=== PATIENT | female | born 1955 ===

== ENCOUNTER 2019-06-15 11:56 | Day surgery (SDC) | payer MEDICARE, BC ==
[~2019-06-15] VITALS: Ht 160 cm; Wt 73.3 kg
[~2019-06-15 11:56] MED LIST: ADULT GLYCERIN1 EACH PR; LINZESS72 MCG PO; LIVALO4 MG PO
[2019-06-15] MEDS ORDERED: THERA-D2000 UNIT PO (12:21)
[2019-06-15] MEDS ORDERED: MELA3 PO (12:21)
[2019-06-15] MEDS ORDERED: Vitamin B-121000 MCG PO (12:21)
--- NOTE | 2019-06-15 14:06 | NUR ---
06/15/19 1406 Annamaria Santiago PROCEDURE CHANGED FROM A UPPER ENDOSCOPY/COLONOSCOPY TO JUST A COLONOSCOPY. PT HAD RECENTLY HAD A BARIUM SWALLOW THAT WAS READ BY MD MELENDEZ.
== END 2019-06-15 13:27 | disposition home or self-care (01) ==
LOC: ORSCSDS 11:56
PROVIDERS: Internal Medicine Gastroenterology
PROC: 0DJD8ZZ Inspection of Lower Intestinal Tract, Via Natural or Artificial Opening Endoscopic (ICD-10-PCS; principal; 2019-06-15 13:15)
DX: Z12.11 Encounter for screening for malignant neoplasm of colon (principal); Z86.010 Personal history of colon polyps; Z80.0 Family history of malignant neoplasm of digestive organs; K59.00 Constipation, unspecified; K57.30 Diverticulosis of large intestine without perforation or abscess without bleeding; R07.9 Chest pain, unspecified; R13.14 Dysphagia, pharyngoesophageal phase; Z79.899 Other long term (current) drug therapy
CPT/HCPCS: J2704; J7120

== ENCOUNTER 2021-06-21 10:05 | Emergency (ER) | payer MEDICARE, BC ==
[~2021-06-21] VITALS: Ht 160 cm; Wt 72.6 kg
[~2021-06-21 10:05] MED LIST changes: +MELA3 PO; +THERA-D2000 UNIT PO; +Vitamin B-121000 MCG PO
== END 2021-06-21 13:06 | disposition home or self-care (01) ==
LOC: ER 10:05
DX: R07.89 Other chest pain (principal); Z88.0 Allergy status to penicillin; Z79.899 Other long term (current) drug therapy; W19.XXXA Unspecified fall, initial encounter
CPT/HCPCS: 71111; 71250; 99284-25

== ENCOUNTER 2025-02-22 13:46 | Emergency (ER) | payer MEDICARE, BC ==
[~2025-02-22] VITALS: Ht 160 cm; Wt 81.2 kg
[2025-02-22 14:08] VITALS: BP 179/92
[2025-02-22 15:41] LABS: BASOPHILS ABSOLUTE AUTO 0.05 K/mm3 (0.00-0.23); BASOPHILS PERCENT AUTO 1 % (0-2); EOSINOPHILS ABSOLUTE AUTO 0.13 K/mm3 (0.00-0.68); EOSINOPHILS PERCENT AUTO 2 % (0-6); Hematocrit 42.3 % (33.0-51.0); Hemoglobin 14.1 g/dL (11.5-16.0); IMMATURE GRAN ABSOLUTE AUTO 0.02 K/mm3 (0.00-0.10); IMMATURE GRAN PERCENT AUTO 0 % (0-1); LYMPHOCYTES ABSOLUTE AUTO 1.74 K/mm3 (0.84-5.20); LYMPHOCYTES PERCENT AUTO 25 % (21-46); MONOCYTES ABSOLUTE AUTO 0.43 K/mm3 (0.16-1.47); MONOCYTES PERCENT AUTO 6 % (4-13); Mean Corpuscular HGB Conc 33.3 g/dL (31.5-36.5); Mean Corpuscular Volume 90 fL (80-100); NEUTROPHILS ABSOLUTE AUTO 4.48 K/mm3 (1.96-9.15); NEUTROPHILS PERCENT AUTO 65 % (41-73); NRBC ABSOLUTE 0.00 K/mm3 (0.00-0.02); NRBC Auto 0.0 /100 WBC (0.0-0.2); Platelet Count 212 K/mm3 (150-400); RDW Coefficient Variation 13.0 % (11.7-14.2); RDW Standard Deviation 42.7 fL (35.1-46.3)
[2025-02-22 16:10] LABS: Alanine Aminotransfer (ALT/SGP 32.0 U/L (12-78); Albumin, Blood 4.2 g/dL (3.4-5.0); Albumin/Globulin Ratio 1.3 (0.8-1.8); Anion Gap 7.0 mmol/L (3-11); Aspartate Aminotrans (AST/SGOT 21.0 U/L (12-37); Bilirubin, Total 0.7 mg/dL (0.1-1.0); Blood Urea Nitrogen 17.0 mg/dL (8-24); CO2, Blood 28.0 mmol/L (21-32); Calcium, Blood 9.5 mg/dL (8.5-10.1); Chloride, Blood 107.0 mmol/L (98-108); Creatinine, Blood 0.69 mg/dL (0.40-1.00); Globulin, Blood 3.3 g/dL (2.2-4.0); Glucose, Blood 101.0 mg/dL (70-99); Magnesium, Blood 2.1 mg/dL (1.6-2.4); Potassium, Blood 4.0 mmol/L (3.5-5.5); Sodium, Blood 138.0 mmol/L (136-145); Total Protein, Blood 7.5 g/dL (6.4-8.2)
[2025-02-22] MEDS ORDERED: ESTRADIOL42.5 GM VAG (16:12)
[2025-02-22] MEDS ORDERED: LANSOPRAZOLE30 MG PO (16:12)
[2025-02-22] MEDS ORDERED: NEBIVOLOL HCL5 MG PO (16:12)
== END 2025-02-22 16:42 | disposition home or self-care (01) ==
LOC: ER 13:46
PROVIDERS: Emergency Medicine
DX: S09.90XA Unspecified injury of head, initial encounter (principal); R55 Syncope and collapse; Z88.0 Allergy status to penicillin; Z79.899 Other long term (current) drug therapy; W19.XXXA Unspecified fall, initial encounter
CPT/HCPCS: 70450; 80053; 83735; 83880; 85025; 93005; 93010; 99284-25